=== PATIENT | male | born 1990 | race Caucasian/White ===

== ENCOUNTER 2016-10-11 18:22 | Emergency (ER) | payer SELFPAY ==
[2016-10-11] MEDS ORDERED: IBUPROFEN 800 MG TABLET PO ONE (19:54)
--- NOTE | 2016-10-11 19:55 | ER Document Report ---
ED Medical Screen (RME) - General Stated Complaint: POSSIBLE SPIDER BITE Mode of Arrival: Ambulatory Information source: Patient Notes: Patient complains of a skin infection for the past 4 days to left upper extremity. No fever. Patient also complains of rash to bilateral upper extremities. I have greeted and performed a rapid initial assessment of this patient. A comprehensive ED assessment and evaluation of the patient, analysis of test results and completion of the medical decision making process will be conducted by additional ED providers. Physical Exam - Skin Skin irregularity: other - Patient with abscess to proximal third left forearm, patient with erythematous maculopapular rash to bilateral upper extremities Irregularity with: Swelling, Tenderness, Warmth
[2016-10-12] MEDS ORDERED: LIDOCAINE 1%/EPINEPHRINE INJ 20 ML VIAL INJ ONE (04:13)
[2016-10-12] MEDS ORDERED: DOXYCYCLINE HYCLATE 100 MG TABLET PO ONE (04:15)
--- NOTE | 2016-10-12 04:18 | ER Document Report ---
ED Skin Rash/Insect Bite/Abscs - General Chief Complaint: Abscess Stated Complaint: POSSIBLE SPIDER BITE Mode of Arrival: Ambulatory TRAVEL OUTSIDE OF THE [place] IN LAST 30 DAYS: No Past Medical History - General Information source: Patient - Social History Smoking Status: Unknown if Ever Smoked Patient has suicidal ideation: No Patient has homicidal ideation: No Renal/ Medical History: Denies: Hx Peritoneal Dialysis Physical Exam - Vital signs Vitals: Temp Pulse Resp BP Pulse Ox 97.9 F 68 16 119/71 98 10/12/16 00:37 10/12/16 00:37 10/12/16 00:37 10/12/16 00:37 10/12/16 00:37 Course - Vital Signs Vital signs: Temp Pulse Resp BP Pulse Ox 97.9 F 68 16 119/71 98 10/12/16 00:37 10/12/16 00:37 10/12/16 00:37 10/12/16 00:37 10/12/16 00:37 Discharge - Discharge Clinical Impression: Abscess of arm, left, Scabies Condition: Stable Disposition: HOME, SELF-CARE Instructions: Abscess ([facility]), Scabies ([facility]) Additional Instructions: Please return in 1-2 days for reevaluation of your abscess. Please make sure you are taking antibiotics as prescribed. Prescriptions: Doxycycline Hyclate 100 mg PO BID #20 capsule Permethrin [Elimite] 60 gm TP ONCE PRN #1 cream..g. PRN Reason: Forms: Return to Work
--- NOTE | 2016-10-12 04:37 | ER Document Report ---
ED Skin Rash/Insect Bite/Abscs - General Mode of Arrival: Ambulatory Information source: Patient TRAVEL OUTSIDE OF THE [place] IN LAST 30 DAYS: No - HPI Patient complains to provider of: Tender/swollen area Onset: Other - 10/07/2016 Onset/Duration: Sudden, Gradual, Worse Skin Character: Erythema, Tenderness <BOAZ TORREZ - Last Filed: 10/12/16 04:33> <BECCA SANCHEZ - Last Filed: 10/12/16 05:29> - General Chief Complaint: Abscess Stated Complaint: POSSIBLE SPIDER BITE Notes: Patient is a 25-year-old male presenting to the emergency department concerned of abscess on his left arm that he noticed on 10/07/2016. Patient complains of pain in his elbow and shoulder. Patient also states that the lesions that he has a lower his body are poison cheyanne. Patient states that was what he was told in [place], where he just moved from. Patient states that he is up-to-date on his tetanus vaccination. (BOAZ TORREZ) Past Medical History - General Information source: Patient - Social History Smoking Status: Unknown if Ever Smoked Family History: Reviewed & Not Pertinent Patient has suicidal ideation: No Patient has homicidal ideation: No <BOAZ TORREZ - Last Filed: 10/12/16 04:33> Review of Systems - Review of Systems Constitutional: No symptoms reported EENT: No symptoms reported Cardiovascular: No symptoms reported Respiratory: No symptoms reported Gastrointestinal: No symptoms reported Genitourinary: No symptoms reported Male Genitourinary: No symptoms reported Musculoskeletal: No symptoms reported Skin: See HPI, Lesions - Diffuse., Other - Abscess left arm. Hematologic/Lymphatic: No symptoms reported Neurological/Psychological: No symptoms reported -: Yes All other systems reviewed and negative <BOAZ TORREZ - Last Filed: 10/12/16 04:33> Physical Exam - Vital signs Interpretation: Normal - General General appearance: Appears well, Alert - HEENT Head: Normocephalic, Atraumatic Eyes: Normal Pupils: PERRL - Respiratory Respiratory status: No respiratory distress Chest status: Nontender Breath sounds: Normal Chest palpation: Normal - Cardiovascular Rhythm: Regular Heart sounds: Normal auscultation Murmur: No - Abdominal Inspection: Normal Distension: No distension Bowel sounds: Normal Tenderness: Nontender Organomegaly: No organomegaly - Back Back: Normal, Nontender - Extremities General upper extremity: Tender, Normal color, Normal ROM, Normal temperature General lower extremity: Nontender, Normal color, Normal ROM, Normal temperature , Normal weight bearing. No: Harjinder's sign - Neurological Neuro grossly intact: Yes Cognition: Normal Orientation: AAOx4 [place] Coma Scale Eye Opening: Spontaneous [place] Coma Scale Verbal: Oriented [place] Coma Scale Motor: Obeys Commands [place] Coma Scale Total: 15 Speech: Normal Motor strength normal: LUE, RUE, LLE, RLE Sensory: Normal - Psychological Associated symptoms: Normal affect, Normal mood - Skin Skin Temperature: Warm Skin Moisture: Dry Skin Color: Normal Skin irregularity: Abscess - Left proximal forearm with fluctuant tender erythematous area consistent with abscess, Rash - Over bilateral upper and lower extremities consistent with scabies <BECCA SANCHEZ - Last Filed: 10/12/16 05:29> - Vital signs Vitals: Temp Pulse Resp BP Pulse Ox 97.9 F 68 16 119/71 98 10/12/16 00:37 10/12/16 00:37 10/12/16 00:37 10/12/16 00:37 10/12/16 00:37 (BOAZ TORREZ) (BECCA SANCHEZ) Course <BOAZ TORREZ - Last Filed: 10/12/16 04:33> <BECCA SANCHEZ - Last Filed: 10/12/16 05:29> - Re-evaluation Re-evalutation: 10/12/16 05:27 Abscess drained in the emergency department. A lot of purulent discharge. Wound culture sent. Patient has been given doxycycline. History return for wound check within one to 2 days. Understands agrees with plan. Patient will also be given a prescription for permethrin for scabies. Stable for discharge. Return if any worsening or concerning symptoms. States he is up-to-date on his tetanus shot. (BECCA SANCHEZ) - Vital Signs Vital signs: Temp Pulse Resp BP Pulse Ox 97.4 F 67 16 110/54 L 97 10/12/16 05:13 10/12/16 05:13 10/12/16 05:13 10/12/16 05:13 10/12/16 05:13 (BOAZ TORREZ) (BECCA SANCHEZ) Procedures - Incision and Drainage Left Arm Type: Simple Anesthetic type: 1% Lidocaine w/epi Blade size: 11 Incision Method: Incision made by scalpel Amount/type of drainage: 20cc purulent discharge <BECCA SANCHEZ - Last Filed: 10/12/16 05:29> - Incision and Drainage Left Arm Notes: 10/12/16 05:28 Purulent Discharge. Tolerated well Wound culture sent (BECCA SANCHEZ) Discharge <BOAZ TORREZ - Last Filed: 10/12/16 04:33> <BECCA SANCHEZ - Last Filed: 10/12/16 05:29> - Discharge Clinical Impression: Abscess of arm, left, Scabies Condition: Stable Disposition: HOME, SELF-CARE Instructions: Abscess ([facility]), Scabies ([facility]) Additional Instructions: Please return in 1-2 days for reevaluation of your abscess. Please make sure you are taking antibiotics as prescribed. Prescriptions: Doxycycline Hyclate 100 mg PO BID #20 capsule Permethrin [Elimite] 60 gm TP ONCE PRN #1 cream..g. PRN Reason: Forms: Return to Work Scribe Attestation: 10/12/16 05:28 I personally performed the services described in the documentation, reviewed and edited the documentation which was dictated to the scribe in my presence, and it accurately records my words and actions. (BECCA SANCHEZ) Scribe Documentation - Scribe Written by Scribe:: Boaz Torrez 10/12/2016 0433 acting as scribe for :: Velasquez <BOAZ TORREZ - Last Filed: 10/12/16 04:33>
[2016-10-12 05:15] VITALS: BP 110/54
[2016-10-12] MEDS ORDERED: HYDROCODONE/ACETAMINOPHEN 5-325 MG 6 TAB/DSPK PO PRN (05:20)
== END 2016-10-12 05:25 | disposition home or self-care (01) ==
LOC: ER 18:22
PROC: 0H9EXZZ Drainage of Left Lower Arm Skin, External Approach (ICD-10-PCS; principal; 2016-10-11)
DX: L02.414 Cutaneous abscess of left upper limb (principal); B86 Scabies
CPT/HCPCS: 10060; 99283; 87070; 87205; 87075; 87077; 87186; J3490